=== PATIENT | female | born 1950 | race Caucasian/White ===

== ENCOUNTER 2016-10-02 17:37 | Emergency (ER) | payer MEDICARE, OTHER ==
[2016-10-02 18:16] VITALS: RESP 18
--- NOTE | 2016-10-02 18:27 | ED ---
Lower Extremity Injury HPI - General Chief Complaint: Extremity Injury, Lower Stated Complaint: RT HIP/PELVIS PAIN FROM FALL Time Seen by Provider: 10/02/16 18:13 Source: patient, RN notes reviewed Mode of arrival: ambulatory Limitations: no limitations - History of Present Illness Initial Comments: Patient is a 66-year-old female since emergency room for evaluation of right hip and groin pain. Patient states last Thursday she slipped and fell on the ice landing on her right hip. Patient states that she had severe pain but the pain did subside over the past few days. Patient states she went out of the house to get her hair done and due to constantly walking she began having increasing pain. Patient states she's been taking 400 mg of ibuprofen with little relief of symptoms. Patient does state she has a bruise on the outer right portion of her hip. Patient states she came here to make sure that she didn't break anything. Patient denies any numbness or tingling in her toes. Patient states she has more pain when walking. Patient denies being on any blood thinners. Patient denies head trauma during the incident. Patient denies any other injuries during incident. - Related Data Home Medications Medication Instructions Recorded Confirmed Unable To Assess [Unable to Assess] 10/02/16 10/02/16 Allergies Allergy/AdvReac Type Severity Reaction Status Date / Time No Known Allergies Allergy Verified 10/02/16 18:16 Review of Systems ROS Statement: Those systems with pertinent positive or pertinent negative responses have been documented in the HPI. ROS Other: All systems not noted in ROS Statement are negative. Past Medical History Past Medical History: Hypertension History of Any Multi-Drug Resistant Organisms: None Reported Past Surgical History: Breast Surgery, Cholecystectomy, Orthopedic Surgery Additional Past Surgical History / Comment(s): Right rotator cuff repair Past Psychological History: No Psychological Hx Reported Smoking Status: Never smoker Past Alcohol Use History: None Reported Past Drug Use History: None Reported General Exam - General Exam Comments Initial Comments: Sitting in exam room, no acute distress. Limitations: no limitations General appearance: alert, in no apparent distress Head exam: Present: atraumatic, normocephalic, normal inspection Eye exam: Present: normal appearance ENT exam: Present: normal exam Neck exam: Present: normal inspection Respiratory exam: Present: normal lung sounds bilaterally. Absent: respiratory distress Cardiovascular Exam: Present: regular rate, normal rhythm, normal heart sounds Right Hip exam: Present: full ROM, tenderness (Lateral hip and groin), ecchymosis (2 cm x 1 cm area of ecchymosis on the lateral portion of the upper leg.), pelvic stability. Absent: swelling, deformity, crepitus, dislocation, external rotation, internal rotation, shortening Upper Leg exam: Present: full ROM. Absent: tenderness Knee exam: Present: full ROM. Absent: tenderness Lower Leg exam: Present: full ROM. Absent: tenderness Ankle exam: Present: full ROM. Absent: tenderness Foot/Toe exam: Present: full ROM. Absent: tenderness Neurovascular tendon exam: Absent: pulse deficit (2+ dorsal pedal and posterior tibial pulses), abnormal cap refill (Capillary refill less than 2 seconds) Gait: observed and normal Back exam: Present: normal inspection Neurological exam: Present: alert, oriented X3, CN II-XII intact Psychiatric exam: Present: normal affect, normal mood Skin exam: Present: warm, dry, intact, normal color. Absent: rash Course Vital Signs 10/02/16 10/02/16 18:12 20:10 Temperature 97.9 F 98.0 F Pulse Rate 70 61 Respiratory 18 18 Rate Blood Pressure 164/102 188/90 O2 Sat by Pulse 98 98 Oximetry Medical Decision Making - Medical Decision Making Patient is a 66-year-old female presents emergency room for evaluation of right hip/groin pain. Right hip/pelvis x-ray: Nondisplaced fracture of the right inferior pubic ramus. Patient declined any pain medication while she was here. Patient declined being sent home with any pain medication. Patient states ibuprofen relieves her symptoms enough. Will write patient a prescription for a walker and have her follow-up with conservation specialist in 24-48 hours. Patient states she understands everything that was discussed with her. Return parameters discussed. Case discussed with Dr. Garcia. - Radiology Data Radiology results: report reviewed, image reviewed Disposition Clinical Impression: Inferior pubic ramus fracture Disposition: HOME SELF-CARE Condition: Good Instructions: Pelvic Fracture (ED) Additional Instructions: Ice on and off for 10-15 minutes for the next 24-48 hours. Use walker to ambulate. Please follow-up with conservation specialist in 24-48 hours for reevaluation. If new symptoms develop or symptoms worsen, please return to the ER. Referrals: Tatyana Garcia MD [Primary Care Provider] - 1-2 days Jeremiah Hedrick MD [Medical Doctor] - 1-2 days Time of Disposition: 19:50
--- NOTE | 2016-10-02 19:23 | XR ---
EXAMINATION TYPE: XR Hip RT and AP Pelvis DATE OF EXAM: 10/02/2016 6:30 PM COMPARISON: NONE HISTORY: 3 views TECHNIQUE: A single AP view of the pelvis is obtained. Two views of the right hip are obtained. FINDINGS: There is a linear lucency across the mid right inferior pubic ramus, consistent with subac monserrat nondisplaced fracture. There are no focal bone lesions associated with this finding or associated soft tissue findings radiographically. Remainder of the bones and joints and soft tissues are negative. Specifically, the right hip is negative. IMPRESSION: NONDISPLACED FRACTURE OF THE RIGHT INFERIOR PUBIC RAMUS.
[2016-10-02 20:11] VITALS: BP 188/90; PULSE 61; TEMP 98
== END 2016-10-02 20:10 | disposition home or self-care (01) ==
LOC: EC 17:37
DX: S32.591A Other specified fracture of right pubis, initial encounter for closed fracture (principal); W00.0XXA Fall on same level due to ice and snow, initial encounter
CPT/HCPCS: 73502; 99283

== ENCOUNTER 2021-10-05 17:48 | Inpatient (IN) | payer MEDICARE ==
[2021-10-05 18:35] LABS: Basophils # (A) 0.1 k/uL (0-0.2); Basophils % (A) 0 %; Eosinophils # (A) 0.3 k/uL (0-0.7); Eosinophils % (A) 2 %; HCT 46.8 % (34.0-46.0); HGB 15.8 gm/dL (11.4-16.0); Lymphocytes # (A) 1.8 k/uL (1.0-4.8); Lymphocytes % (A) 12 %; MCH 35.5 pg (25.0-35.0); MCHC 33.8 g/dL (31.0-37.0); MCV 105.1 fL (80.0-100.0); Macrocytosis Slight; Mean Platelet Volume 8.1; Monocytes # (A) 0.5 k/uL (0-1.0); Monocytes % (A) 3 %; Neutrophils # (A) 12.7 k/uL (1.3-7.7); Neutrophils % (A) 82 %; Platelet Count 264 k/uL (150-450); RBC 4.45 m/uL (3.80-5.40); RDW 12.5 % (11.5-15.5); WBC 15.5 k/uL (3.8-10.6)
[2021-10-05 18:42] LABS: INR 0.9 (<1.2); Partial Thromboplastin Time 23.8 sec (22.0-30.0)
[2021-10-05 18:44] LABS: Albumin 4.8 g/dL (3.5-5.0); Calcium 10.1 mg/dL (8.4-10.2); Magnesium 1.8 mg/dL (1.6-2.3); Total Bilirubin 2.2 mg/dL (0.2-1.3); Total Protein 8.5 g/dL (6.3-8.2)
--- NOTE | 2021-10-05 18:57 | XR ---
EXAMINATION TYPE: XR chest 1V portable DATE OF EXAM: 10/05/2021 COMPARISON: NONE HISTORY: Chest pain TECHNIQUE: Single view FINDINGS: There is no heart failure nor confluent pneumonic infiltrate. Costophrenic angles are clear . There are chest leads. Bony thorax is intact IMPRESSION: No active cardiopulmonary disease.
--- NOTE | 2021-10-05 20:02 | CT ---
EXAMINATION TYPE: CT angio chest DATE OF EXAM: 10/05/2021 COMPARISON: None HISTORY: JAZIEL, r/o PE CT DLP: 400.2 mGycm Automated exposure control for dose reduction was used. CONTRAST: Performed with IV Contrast, patient injected with 80 mL of Isovue 370. There are Three-D postprocessed images. There is a moderate sized pericardial effusion. There is interstitial infiltrates in both lower lobes . There is no evidence of a pulmonary mass. There is no mediastinal adenopathy. There are no hilar ma sses. There is normal contrast opacification of the pulmonary arteries. There are no filling defects. There is some spurring in the thoracic spine. Sternum is intact. IMPRESSION: No evidence of pulmonary embolism. Pericardial effusion. Interstitial lower lobe pulmonary infiltrates.
[2021-10-05] MEDS ORDERED: ACETAMINOPHEN TAB 325 MG TAB PO PRN (20:08)
[2021-10-05] MEDS ORDERED: cefTRIAXone IN SWFI 1,000 MG/10 ML SYRINGE IVP STA (20:08)
[2021-10-05] MEDS ORDERED: AZITHROMYCIN 500 MG in SODIUM CHLORIDE 0.9% 250 ML IVPB STA (20:08)
[2021-10-05] MEDS ORDERED: HEPARIN SODIUM 1,000 UN/ML (10ML VL) IV ONE (20:08)
[2021-10-05] MEDS ORDERED: HEPARIN SODIUM 1,000 UN/ML (10ML VL) IV PRN (20:08)
[2021-10-05] MEDS ORDERED: NALOXONE 0.4 MG/ML 1 ML VIAL IV PRN (20:08)
--- NOTE | 2021-10-05 20:15 | ED ---
General Adult HPI - General Chief complaint: Chest Pain Stated complaint: JAZIEL Time Seen by Provider: 10/05/21 18:04 Source: patient, RN notes reviewed, old records reviewed Mode of arrival: ambulatory Limitations: no limitations - History of Present Illness Initial comments: 71-year-old female presenting for evaluation of 2 days of chest discomfort as w ell as dyspnea. Patient has no previous history of CAD, no history of DVT or PE. No history of asthma or COPD. She denies cough. Denies fever. She states that the symptoms have been present for 2 days and they are worse with exertion. She did have a similar episode about one week ago which resolved. - Related Data Home Medications Medication Instructions Recorded Confirmed Allopurinol [Zyloprim] 100 mg PO DAILY 10/05/21 10/05/21 Aspirin EC [Ecotrin Low Dose] 81 mg PO DAILY 10/05/21 10/05/21 Lisinopril-Hctz 20-12.5 mg 1 tab PO DAILY 10/05/21 10/05/21 [Zestoretic 20-12.5] Multivitamins, Thera [Multivitamin 1 tab PO DAILY 10/05/21 10/05/21 (formulary)] amLODIPine [Norvasc] 10 mg PO DAILY 10/05/21 10/05/21 Allergies Allergy/AdvReac Type Severity Reaction Status Date / Time morphine AdvReac Vomiting Verified 10/05/21 20:04 Review of Systems ROS Statement: Those systems with pertinent positive or pertinent negative responses have been documented in the HPI. ROS Other: All systems not noted in ROS Statement are negative. Past Medical History Past Medical History: Hypertension History of Any Multi-Drug Resistant Organisms: None Reported Past Surgical History: Breast Surgery, Cholecystectomy, Orthopedic Surgery Additional Past Surgical History / Comment(s): Right rotator cuff repair Past Psychological History: No Psychological Hx Reported Smoking Status: Never smoker Past Alcohol Use History: None Reported Past Drug Use History: None Reported General Exam Limitations: no limitations General appearance: alert, in no apparent distress Head exam: Present: atraumatic, normocephalic Eye exam: Present: normal appearance, PERRL ENT exam: Present: normal exam Neck exam: Present: normal inspection. Absent: tenderness, meningismus Respiratory exam: Present: rales (Left lung base). Absent: respiratory distress Cardiovascular Exam: Present: tachycardia, irregular rhythm GI/Abdominal exam: Present: soft. Absent: distended, tenderness, guarding Extremities exam: Present: normal inspection, normal capillary refill. Absent: pedal edema Neurological exam: Present: alert, oriented X3, CN II-XII intact. Absent: motor sensory deficit Psychiatric exam: Present: normal affect, normal mood Skin exam: Present: warm, dry, intact. Absent: cyanosis, diaphoretic Course Vital Signs 10/05/21 10/05/21 17:59 18:52 Temperature 99 F Pulse Rate 118 H 102 H Respiratory 18 18 Rate Blood Pressure 136/86 141/80 O2 Sat by Pulse 97 97 Oximetry EKG Findings - EKG Comments: EKG Findings:: EKG: Atrial fibrillation with RVR rate of 114, rightward axis, no ST segment elevation, widened QRS, QTC is 468. No old for comparison. Medical Decision Making - Medical Decision Making 71-year-old female who presented with chief complaint of chest discomfort and dyspnea for the last 2 days. Patient found to be in atrial fibrillation with RVR with no prior history. There is no old EKG for comparison. Her workup shows chest x-ray which is relatively clear. Mild leukocytosis of 15.4. Stable hemoglobin. She has a negative troponin. Negative BNP. I did have coronavirus. I did perform CT angiography which was negative for pulmonary embolism but this show infiltrate as well as pericardial effusion. Echo will be obtained. The patient is started on Cardizem for rate control. She started on heparin for new onset atrial fibrillation. She will be admitted to monitored bed, case discussed with Dr. Silverman. Cardiology is placed on consult. - Lab Data Result diagrams: 10/05/21 18:23 10/05/21 18:23 Lab Results 10/05/21 10/05/21 10/05/21 Range/Units 18:23 18:23 18:23 WBC 15.5 H (3.8-10.6) k/uL RBC 4.45 (3.80-5.40) m/uL Hgb 15.8 (11.4-16.0) gm/dL Hct 46.8 H (34.0-46.0) % MCV 105.1 H (80.0-100.0) fL MCH 35.5 H (25.0-35.0) pg MCHC 33.8 (31.0-37.0) g/dL RDW 12.5 (11.5-15.5) % Plt Count 264 (150-450) k/uL MPV 8.1 Neutrophils % 82 % Lymphocytes % 12 % Monocytes % 3 % Eosinophils % 2 % Basophils % 0 % Neutrophils # 12.7 H (1.3-7.7) k/uL Lymphocytes # 1.8 (1.0-4.8) k/uL Monocytes # 0.5 (0-1.0) k/uL Eosinophils # 0.3 (0-0.7) k/uL Basophils # 0.1 (0-0.2) k/uL Macrocytosis Slight PT 10.0 (9.0-12.0) sec INR 0.9 (<1.2) APTT 23.8 (22.0-30.0) sec Sodium 132 L (137-145) mmol/L Potassium 5.0 (3.5-5.1) mmol/L Chloride 98 (98-107) mmol/L Carbon Dioxide 23 (22-30) mmol/L Anion Gap 11 mmol/L BUN 15 (7-17) mg/dL Creatinine 0.99 (0.52-1.04) mg/dL Est GFR (CKD-EPI)AfAm 67 (>60 ml/min/1.73 sqM) Est GFR (CKD-EPI)NonAf 58 (>60 ml/min/1.73 sqM) Glucose 149 H (74-99) mg/dL Calcium 10.1 (8.4-10.2) mg/dL Magnesium 1.8 (1.6-2.3) mg/dL Total Bilirubin 2.2 H (0.2-1.3) mg/dL AST 45 H (14-36) U/L ALT 30 (4-34) U/L Alkaline Phosphatase 68 (38-126) U/L Troponin I (0.000-0.034) ng/mL NT-Pro-B Natriuret Pep pg/mL Total Protein 8.5 H (6.3-8.2) g/dL Albumin 4.8 (3.5-5.0) g/dL Coronavirus (PCR) (Not Detectd) 10/05/21 10/05/21 10/05/21 Range/Units 18:23 18:23 18:52 WBC (3.8-10.6) k/uL RBC (3.80-5.40) m/uL Hgb (11.4-16.0) gm/dL Hct (34.0-46.0) % MCV (80.0-100.0) fL MCH (25.0-35.0) pg MCHC (31.0-37.0) g/dL RDW (11.5-15.5) % Plt Count (150-450) k/uL MPV Neutrophils % % Lymphocytes % % Monocytes % % Eosinophils % % Basophils % % Neutrophils # (1.3-7.7) k/uL Lymphocytes # (1.0-4.8) k/uL Monocytes # (0-1.0) k/uL Eosinophils # (0-0.7) k/uL Basophils # (0-0.2) k/uL Macrocytosis PT (9.0-12.0) sec INR (<1.2) APTT (22.0-30.0) sec Sodium (137-145) mmol/L Potassium (3.5-5.1) mmol/L Chloride (98-107) mmol/L Carbon Dioxide (22-30) mmol/L Anion Gap mmol/L BUN (7-17) mg/dL Creatinine (0.52-1.04) mg/dL Est GFR (CKD-EPI)AfAm (>60 ml/min/1.73 sqM) Est GFR (CKD-EPI)NonAf (>60 ml/min/1.73 sqM) Glucose (74-99) mg/dL Calcium (8.4-10.2) mg/dL Magnesium (1.6-2.3) mg/dL Total Bilirubin (0.2-1.3) mg/dL AST (14-36) U/L ALT (4-34) U/L Alkaline Phosphatase (38-126) U/L Troponin I 0.019 (0.000-0.034) ng/mL NT-Pro-B Natriuret Pep 337 pg/mL Total Protein (6.3-8.2) g/dL Albumin (3.5-5.0) g/dL Coronavirus (PCR) Not Detected (Not Detectd) Critical Care Time Critical Care Time: Yes Total Critical Care Time: 35 Disposition Clinical Impression: Chest pain, Atrial fibrillation with RVR Disposition: ADMITTED IP TO THIS HOSP Condition: Stable Is patient prescribed a controlled substance at d/c from ED?: No Referrals: Tatyana Garcia MD [Primary Care Provider] - 1-2 days Decision to Admit Reason: Admit from EC Decision Date: 10/05/21 Decision Time: 20:15
[2021-10-05] MEDS: DILTIAZEM 125 MG in SODIUM CHLORIDE 0.9% 100 ML IV SCH (20:40)
[2021-10-05] MEDS: HEPARIN SOD,PORK IN 0.45% NACL 25,000 UNIT in 0.45% NACL 1 250ML.BAG IV SCH (20:54)
[2021-10-06] MEDS ORDERED: LORazepam 2 MG/ML INJ IV PRN ×3 (01:49)
[2021-10-06 03:55] LABS: Basophils # (A) 0.1 k/uL (0-0.2); Basophils % (A) 1 %; Eosinophils # (A) 0.1 k/uL (0-0.7); Eosinophils % (A) 1 %; HCT 42.4 % (34.0-46.0); HGB 14.2 gm/dL (11.4-16.0); Lymphocytes # (A) 2.2 k/uL (1.0-4.8); Lymphocytes % (A) 20 %; MCH 35.6 pg (25.0-35.0); MCHC 33.5 g/dL (31.0-37.0); MCV 106.1 fL (80.0-100.0); Macrocytosis Slight; Monocytes # (A) 0.3 k/uL (0-1.0); Monocytes % (A) 3 %; Neutrophils # (A) 8.6 k/uL (1.3-7.7); Neutrophils % (A) 76 %; Platelet Count 225 k/uL (150-450); RDW 12.5 % (11.5-15.5); WBC 11.3 k/uL (3.8-10.6)
[2021-10-06 04:05] LABS: INR 0.9 (<1.2); Partial Thromboplastin Time 29.4 sec (22.0-30.0); Prothrombin Time 10.3 sec (9.0-12.0)
--- NOTE | 2021-10-06 10:19 | P.HPIM ---
History of Present Illness H&P Date: 10/06/21 Chief Complaint: Shortness of breath A. fib RVR This is a 71-year-old female patient of Dr. Garcia who presented with concerns of shortness breath and rapid heartbeat. Patient states that initial episode happened 2 days ago where she felt that her heart was racing and she had trouble breathing. Patient denies any symptoms. Patient reports that the symptoms re- presented yesterday which prompted her to come to ER. Patient does have a past medical history of essential hypertension and EtOH. Patient reports she drinks 6 beers a day. Chest x-ray was completed showing no active cardiopulmonary disease. Chest CTA was completed showing no evidence of pulmonary embolism. Pericardial effusion. Interstitial lower lobe multiple pulmonary infiltrates. Patient also presented with an elevated white count of 15.5. EKG completed showing atrial fibrillation with rapid ventricular response. Patient denies history of atrial fibrillation. Troponins negative 3. Patient was started on Cardizem drip and heparin drip. Patient also started on IV antibiotics. At this time cardiology and pulmonary services have been consulted. COVID-19 negative. 2-D echo has been ordered. Alcohol withdrawal protocol initiated. Repeat labs ordered. This time patient is resting comfortably in bed. Patient denies chest pain or shortness breath. Patient denies nausea vomiting or diarrhea. Patient denies any urinary burning or frequency Review of Systems Please refer to HPI otherwise unremarkable Past Medical History Past Medical History: Hyperlipidemia, Hypertension History of Any Multi-Drug Resistant Organisms: None Reported Past Surgical History: Breast Surgery, Cholecystectomy, Orthopedic Surgery Additional Past Surgical History / Comment(s): Right rotator cuff repair Past Anesthesia/Blood Transfusion Reactions: No Reported Reaction Past Psychological History: No Psychological Hx Reported Smoking Status: Never smoker Past Alcohol Use History: Daily Additional Past Alcohol Use History / Comment(s): 6 beers a day, denies any detox s/sx Past Drug Use History: None Reported - Past Family History Father Family Medical History: Myocardial Infarction (ND) Mother Family Medical History: Congestive Heart Failure (CHF) Medications and Allergies Home Medications Medication Instructions Recorded Confirmed Type Allopurinol [Zyloprim] 100 mg PO DAILY 10/05/21 10/05/21 History Aspirin EC [Ecotrin Low Dose] 81 mg PO DAILY 10/05/21 10/05/21 History Lisinopril-Hctz 20-12.5 mg 1 tab PO DAILY 10/05/21 10/05/21 History [Zestoretic 20-12.5] Multivitamins, Thera [Multivitamin 1 tab PO DAILY 10/05/21 10/05/21 History (formulary)] amLODIPine [Norvasc] 10 mg PO DAILY 10/05/21 10/05/21 History Allergies Allergy/AdvReac Type Severity Reaction Status Date / Time morphine AdvReac Vomiting Verified 10/05/21 20:04 Physical Exam Vitals: Vital Signs Temp Pulse Pulse Resp BP BP Pulse Ox 10/06/21 03:15 98.2 F 82 18 141/82 95 10/06/21 00:24 20 10/05/21 23:30 98.6 F 92 20 135/77 94 L 10/05/21 22:42 80 18 115/80 98 10/05/21 21:35 95 10/05/21 20:56 104 H 18 139/82 97 10/05/21 18:52 102 H 18 141/80 97 10/05/21 17:59 99 F 118 H 18 136/86 97 Intake and Output 10/05/21 10/06/21 10/06/21 22:59 06:59 14:59 Intake Total 75.525 Balance 75.525 Intake: Intake, IV Titration 75.525 Amount Heparin Sod,Pork in 0.45% 75.525 NaCl 25,000 unit In 0.45 % NaCl 1 250ml.bag @ 12 UNITS/KG/HR 10.07 mls/hr IV .Q24H ON LICENSE OF [facility] Rx#: [id number] Other: # Voids 1 1 Weight 83.915 kg 83.915 kg Head normocephalic Neck supple Lungs clear to auscultation bilaterally no wheezing or crackles Heart irregular heart rate. Atrial fibrillation Abdomen is soft nontender nondistended positive bowel sounds no hepatosplenomegaly Extremities no edema Neuro alert and orientated to 3 Results CBC & Chem 7: 10/06/21 03:05 10/05/21 18:23 Labs: Abnormal Lab Results - Last 24 Hours (Table) 10/05/21 10/05/21 10/06/21 Range/Units 18:23 18:23 03:05 WBC 15.5 H 11.3 H (3.8-10.6) k/uL Hct 46.8 H (34.0-46.0) % MCV 105.1 H 106.1 H (80.0-100.0) fL MCH 35.5 H 35.6 H (25.0-35.0) pg Neutrophils # 12.7 H 8.6 H (1.3-7.7) k/uL APTT (22.0-30.0) sec Sodium 132 L (137-145) mmol/L Glucose 149 H (74-99) mg/dL Total Bilirubin 2.2 H (0.2-1.3) mg/dL AST 45 H (14-36) U/L Total Protein 8.5 H (6.3-8.2) g/dL 10/06/21 Range/Units 09:38 WBC (3.8-10.6) k/uL Hct (34.0-46.0) % MCV (80.0-100.0) fL MCH (25.0-35.0) pg Neutrophils # (1.3-7.7) k/uL APTT 39.2 H (22.0-30.0) sec Sodium (137-145) mmol/L Glucose (74-99) mg/dL Total Bilirubin (0.2-1.3) mg/dL AST (14-36) U/L Total Protein (6.3-8.2) g/dL Thrombosis Risk Factor Assmnt - Choose All That Apply Any of the Below Risk Factors Present?: Yes Each Factor Represents 1 point: History of prior major surgery (<1month), Obesity (BMI >25) Other Risk Factors: Yes Each Risk Factor Represents 2 Points: Age 61-74 years Thrombosis Risk Factor Assessment Total Risk Factor Score: 4 Thrombosis Risk Factor Assessment Level: Moderate Risk Assessment and Plan Assessment: 1. Dyspnea secondary to pneumonia and new onset atrial fibrillation with RVR 2. Atrial fibrillation with rapid ventricular response. Patient started on Cardizem and heparin drips. Cardiology services consulted 2-D echo ordered 3. Pneumonia. Patient started on azithromycin and Rocephin. Pulmonary service is consulted 4. EtOH. Alcohol withdrawal protocol initiated patient reports she drinks approximately 6 beers a day 5. Essential hypertension DVT prophylaxis heparin drip. GI prophylaxis Protonix Cardiology and pulmonary service is consulted 2-D echo ordered Hemoglobin A1c ordered Patient maintained on IV antibiotics Patient maintained on IV Cardizem and heparin drips Time with Patient: Greater than 30 (Greater than 60% of the total time spent in counseling and coordination of care)
[2021-10-06 10:24] LABS: Albumin 3.9 g/dL (3.5-5.0); Calcium 9.6 mg/dL (8.4-10.2); Potassium 3.8 mmol/L (3.5-5.1); Total Bilirubin 0.9 mg/dL (0.2-1.3); Total Protein 6.7 g/dL (6.3-8.2)
--- NOTE | 2021-10-06 12:26 | P.CRDCN ---
History of Present Illness Consult date: 10/06/21 History of present illness: History of Presenting Illness: Patient is a very pleasant 71-year-old female with a past medical history of hypertension, hyperlipidemia, and EtOH use/abuse drinking approximately 6 beers daily times many years. She presented to the emergency department with a chief complaint of shortness of breath, chest pressure and palpitations. In the emergency department patient underwent a full evaluation. Chest x-ray completed negative for acute cardiopulmonary process. CTA negative for pulmonary emboli. EKG revealing atrial fibrillation with RVR 114 bpm with T-wave inversion in inferior leads 2, 3, and aVF. Patient was admitted under internal medicine team and we have been consulted for management of A. fib RVR. Patient seen and fully evaluated at the bedside. She is currently on heparin infusion and Cardizem i nfusion at 5 mg per hour. Patient remains in atrial fibrillation with slightly tachycardic rate ranging from 90s to 110s. She currently reports palpitations, shortness of breath, and chest pressure have resolved. She denies having any other complaints including headache, lightheadedness, dizziness, nausea, vomiting, or experiencing any numbness/tingling/weakness in her extremities. Review of systems: Pertinent positives and negatives as discussed in HPI, a complete review of systems was performed and all other systems are negative. Physical exam: Vital signs reviewed and stable. General: Nontoxic, no distress and appears stated age. Derm: Skin warm and dry, normal coloration for ethnicity. Head: Atraumatic, normocephalic and symmetric. Eyes: EOMs intact, no lid lag, and anicteric sclera Mouth: no lip lesions, mucus membranes moist Cardiovascular: regular rate and rhythm with normal S1S2, no murmur, positive posterior tibial pulses bilaterally, and cap refill < 2 seconds. Lungs: Respirations even, regular, and unlabored on room air. Lungs CTA bilaterally, no rhonchi, no rales, no wheezing, and no accessory muscle usage. Abdominal: soft, nontender to palpation, no guarding, no appreciable organomegaly Ext: ROM intact. No gross muscle atrophy, no edema, no contractures Neuro: Speech clear, face symmetrical and CN II-XII grossly intact with no noted focal neuro deficits Psych: Alert and oriented to person, place, time, and situation. Appropriate and pleasant affect. Assessment and Plan of Care: Atrial fibrillation with RVR, new onset Hypertension Hyperlipidemia EtOH use/abuse -Telemetry monitoring -Continue heparin infusion, will transition to oral anticoagulation tomorrow morning. -Continue Cardizem infusion for rate control -Resume amlodipine, lisinopril, and add metoprolol 25 mg daily -Patient counseled on alcohol abuse and risks for atrial fibrillation, continue to encourage and educate patient on benefits of alcohol cessation and risks of continued use. -Echocardiogram to be completed. -Further recommendations to be provided based on patient's clinical course. Thank you for allowing us to participate in the care of this pleasant patient. Do not hesitate to contact us with questions. Nurse practitioner note has been reviewed by physician. Signing provider agrees with the documented findings, assessment, and plan of care. PMH HTN, no previous heart problems etoh abuse 6 beers daily CP, SOB, Palpitations new onset atrial fib with RVR lungs CTA Heart irregularly irregular on cardizem and heparin Past Medical History Past Medical History: Hyperlipidemia, Hypertension History of Any Multi-Drug Resistant Organisms: None Reported Past Surgical History: Breast Surgery, Cholecystectomy, Orthopedic Surgery Additional Past Surgical History / Comment(s): Right rotator cuff repair Past Anesthesia/Blood Transfusion Reactions: No Reported Reaction Past Psychological History: No Psychological Hx Reported Smoking Status: Never smoker Past Alcohol Use History: Daily Additional Past Alcohol Use History / Comment(s): 6 beers a day, denies any detox s/sx Past Drug Use History: None Reported - Past Family History Father Family Medical History: Myocardial Infarction ([place]) Mother Family Medical History: Congestive Heart Failure (CHF) Medications and Allergies Home Medications Medication Instructions Recorded Confirmed Type Allopurinol [Zyloprim] 100 mg PO DAILY 10/05/21 10/05/21 History Aspirin EC [Ecotrin Low Dose] 81 mg PO DAILY 10/05/21 10/05/21 History Lisinopril-Hctz 20-12.5 mg 1 tab PO DAILY 10/05/21 10/05/21 History [Zestoretic 20-12.5] Multivitamins, Thera [Multivitamin 1 tab PO DAILY 10/05/21 10/05/21 History (formulary)] amLODIPine [Norvasc] 10 mg PO DAILY 10/05/21 10/05/21 History Allergies Allergy/AdvReac Type Severity Reaction Status Date / Time morphine AdvReac Vomiting Verified 10/05/21 20:04 Physical Exam Vitals: Vital Signs Temp Pulse Pulse Resp BP BP Pulse Ox 10/06/21 03:15 98.2 F 82 18 141/82 95 10/06/21 00:24 20 10/05/21 23:30 98.6 F 92 20 135/77 94 L 10/05/21 22:42 80 18 115/80 98 10/05/21 21:35 95 10/05/21 20:56 104 H 18 139/82 97 10/05/21 18:52 102 H 18 141/80 97 10/05/21 17:59 99 F 118 H 18 136/86 97 Intake and Output 10/05/21 10/06/21 10/06/21 22:59 06:59 14:59 Intake Total 75.525 Balance 75.525 Intake: Intake, IV Titration 75.525 Amount Heparin Sod,Pork in 0.45% 75.525 NaCl 25,000 unit In 0.45 % NaCl 1 250ml.bag @ 12 UNITS/KG/HR 10.07 mls/hr IV .Q24H [facility] Rx#: [id number] Other: # Voids 1 Weight 83.915 kg 83.915 kg Results 10/06/21 03:05 10/06/21 09:38 Cardiac Enzymes 10/05/21 10/05/21 10/05/21 Range/Units 18:23 18:23 20:33 AST 45 H (14-36) U/L Troponin I 0.019 <0.012 (0.000-0.034) ng/mL 10/06/21 Range/Units 00:03 AST (14-36) U/L Troponin I 0.012 (0.000-0.034) ng/mL Coagulation 10/05/21 10/06/21 Range/Units 18:23 03:05 PT 10.0 10.3 (9.0-12.0) sec APTT 23.8 29.4 (22.0-30.0) sec CBC 10/05/21 10/06/21 Range/Units 18:23 03:05 WBC 15.5 H 11.3 H (3.8-10.6) k/uL RBC 4.45 4.00 (3.80-5.40) m/uL Hgb 15.8 14.2 (11.4-16.0) gm/dL Hct 46.8 H 42.4 (34.0-46.0) % Plt Count 264 225 (150-450) k/uL Comprehensive Metabolic Panel 10/05/21 Range/Units 18:23 Sodium 132 L (137-145) mmol/L Potassium 5.0 (3.5-5.1) mmol/L Chloride 98 (98-107) mmol/L Carbon Dioxide 23 (22-30) mmol/L BUN 15 (7-17) mg/dL Creatinine 0.99 (0.52-1.04) mg/dL Glucose 149 H (74-99) mg/dL Calcium 10.1 (8.4-10.2) mg/dL AST 45 H (14-36) U/L ALT 30 (4-34) U/L Alkaline Phosphatase 68 (38-126) U/L Total Protein 8.5 H (6.3-8.2) g/dL Albumin 4.8 (3.5-5.0) g/dL Current Medications Generic Name Dose Route Start Last Admin Trade Name Freq PRN Reason Stop Dose Admin Acetaminophen 650 mg 10/05/21 20:08 Acetaminophen Tab 325 Mg Tab PO Q6HR PRN Mild Pain or Fever > 100.5 Heparin Sodium (Porcine) 0 unit 10/05/21 20:08 10/06/21 04:31 Heparin Sodium 1,000 Un/Ml (10ml Vl) IV 4,195 unit PER PROTOCOL PRN Administration Low PTT Protocol Diltiazem HCl 125 mg/ Sodium 125 mls @ 5 mls/hr 10/05/21 20:15 10/05/21 20:40 Chloride IV 5 mg/hr .Q24H [facility] 5 mls/hr Administration 5 MG/HR Heparin Sodium/Sodium Chloride 250 mls @ 10.07 mls/hr 10/05/21 20:15 10/06/21 04:24 25,000 unit/ Sodium Chloride IV 15 units/kg/hr .Q24H [facility] 12.587 mls/hr Titration Protocol 12 UNITS/KG/HR Lorazepam 1 mg 10/06/21 01:49 Lorazepam 2 Mg/Ml Inj IV Q2HR PRN CIWA 8 or 9 Lorazepam 1 mg 10/06/21 01:49 Lorazepam 2 Mg/Ml Inj IV Q1HR PRN CIWA 10 to 15 Lorazepam 2 mg 10/06/21 01:49 Lorazepam 2 Mg/Ml Inj IV 10/08/21 01:49 Q10M PRN CIWA 16 or higher Naloxone HCl 0.2 mg 10/05/21 20:08 Naloxone 0.4 Mg/Ml 1 Ml Vial IV Q2M PRN Opioid Reversal Thiamine HCl 100 mg 10/06/21 17:30 Thiamine 100 Mg Tab PO BID-W/MEALS [facility] Intake and Output 10/05/21 10/06/21 10/06/21 22:59 06:59 14:59 Intake Total 75.525 Balance 75.525 Intake: Intake, IV Titration 75.525 Amount Heparin Sod,Pork in 0.45% 75.525 NaCl 25,000 unit In 0.45 % NaCl 1 250ml.bag @ 12 UNITS/KG/HR 10.07 mls/hr IV .Q24H [facility] Rx#: [id number] Other: # Voids 1 Weight 83.915 kg 83.915 kg 10/06/21 03:05 10/05/21 18:23
[2021-10-06] MEDS ORDERED: METOPROLOL SUCCINATE (ER) 25 MG TAB.ER.24H PO SCH (12:30)
[2021-10-06] MEDS: THIAMINE 100 MG TAB PO SCH (12:46)
--- NOTE | 2021-10-06 14:07 | P.CNPUL ---
History of Present Illness Consult date: 10/06/21 Requesting physician: Poonam Somers Reason for consult: dyspnea, chest pain Chief complaint: Chest pain, shortness of breath History of present illness: This a very pleasant 71-year-old female patient who follows with Dr. Garcia as her primary care provider. She has a history of hypertension, gout, a 20 year 2 pack per day smoking history. He presented to the emergency room last evening with a 2 day history of chest discomfort as well as some shortness of breath. She had a similar episode to 1 week ago. No previous history of coronary artery disease no history of DVT or PE. No history of COPD or asthma. No inhalers or oxygen in the outpatient setting. Chest x-ray revealed no acute cardiopulmonary process. CT angiogram revealed no evidence of pulmonary embolism. There was some noted pericardial effusion. Left lower lobe atelectasis. EKG revealed atrial fibrillation with a rapid ventricular response. Incomplete right bundle branch block. Troponin negative 2. ProBNP 337. White count 11.3. Hemoglobin 14.2. Sodium 134. Potassium 3.8. BUN 0.99. Glucose 136. AST 20. ALT 21. Coronavirus by PCR not detected. She is seen today in consultation on the selective care unit. She is currently sitting up in bed. Awake and alert in no acute distress. She is maintaining good O2 saturations in the 90s on room air. No shortness of breath, cough or congestion. No fever, chills or night sweats. Lung sounds are clear. His been initiated on a Cardizem drip currently at 5 mg per hour. Initiated on a heparin drip. Cardiology is consulted as well. Echocardiogram is pending. She's been initiated on ceftriaxone and azithromycin. Review of Systems REVIEW OF SYSTEMS: CONSTITUTIONAL: Denies any recent significant weight loss or weight gain. EYES: Denies change in vision. EARS, NOSE, MOUTH, THROAT: Denies headaches, denies sore throat. CARDIOVASCULAR: Positive for chest pain, palpitations no syncopal episodes. RESPIRATORY: Positive for shortness of breath, no cough, congestion or hemoptysis. GASTROINTESTINAL: Denies change in appetite, denies abdominal pain GENITOURINARY: Denies hematuria, denies infections. MUSKULOSKELETAL: Denies pain, denies swelling. INTEGUMENTARY: Denies rash, denies eczema. NEUROLOGICAL: Denies recent memory loss, no recent seizure activity. PSYCHIATRIC: Denies anxiety, denies depression. HEMATOLOGIC/LYMPHATIC: Denies anemia, denies enlarged lymph nodes. s Past Medical History Past Medical History: Hyperlipidemia, Hypertension History of Any Multi-Drug Resistant Organisms: None Reported Past Surgical History: Breast Surgery, Cholecystectomy, Orthopedic Surgery Additional Past Surgical History / Comment(s): Right rotator cuff repair Past Anesthesia/Blood Transfusion Reactions: No Reported Reaction Past Psychological History: No Psychological Hx Reported Smoking Status: Never smoker Past Alcohol Use History: Daily Additional Past Alcohol Use History / Comment(s): 6 beers a day, denies any detox s/sx Past Drug Use History: None Reported - Past Family History Father Family Medical History: Myocardial Infarction ([place]) Mother Family Medical History: Congestive Heart Failure (CHF) Medications and Allergies Home Medications Medication Instructions Recorded Confirmed Type Allopurinol [Zyloprim] 100 mg PO DAILY 10/05/21 10/05/21 History Aspirin EC [Ecotrin Low Dose] 81 mg PO DAILY 10/05/21 10/05/21 History Lisinopril-Hctz 20-12.5 mg 1 tab PO DAILY 10/05/21 10/05/21 History [Zestoretic 20-12.5] Multivitamins, Thera [Multivitamin 1 tab PO DAILY 10/05/21 10/05/21 History (formulary)] amLODIPine [Norvasc] 10 mg PO DAILY 10/05/21 10/05/21 History Allergies Allergy/AdvReac Type Severity Reaction Status Date / Time morphine AdvReac Vomiting Verified 10/05/21 20:04 Physical Exam Vitals: Vital Signs Temp Pulse Pulse Resp BP BP BP 10/06/21 12:45 97.6 F 86 18 126/61 10/06/21 07:45 97.6 F 70 18 124/70 10/06/21 03:15 98.2 F 82 18 141/82 10/06/21 00:24 20 10/05/21 23:30 98.6 F 92 20 135/77 10/05/21 22:42 80 18 115/80 10/05/21 21:35 95 10/05/21 20:56 104 H 18 139/82 10/05/21 18:52 102 H 18 141/80 10/05/21 17:59 99 F 118 H 18 136/86 Pulse Ox 10/06/21 12:45 92 L 10/06/21 07:45 96 10/06/21 03:15 95 10/06/21 00:24 10/05/21 23:30 94 L 10/05/21 22:42 98 10/05/21 21:35 10/05/21 20:56 97 10/05/21 18:52 97 10/05/21 17:59 97 Intake and Output 10/05/21 10/06/21 10/06/21 22:59 06:59 14:59 Intake Total 75.525 270 Balance 75.525 270 Intake: IV 30 Invasive Line 2 20 Invasive Line 3 10 Intake, IV Titration 75.525 Amount Heparin Sod,Pork in 0.45% 75.525 NaCl 25,000 unit In 0.45 % NaCl 1 250ml.bag @ 12 UNITS/KG/HR 10.07 mls/hr IV .Q24H [facility] Rx#: [id number] Oral 240 Other: # Voids 1 1 Weight 83.915 kg 83.915 kg GENERAL EXAM: Alert, very pleasant 71-year-old female patient, on room air, comfortable in no apparent distress. HEAD: Normocephalic. EYES: Normal reaction of pupils, equal size. NOSE: Clear with pink turbinates. THROAT: No erythema or exudates. NECK: No masses, no JVD. CHEST: No chest wall deformity. LUNGS: Equal air entry with no crackles, wheeze, rhonchi or dullness. CVS: S1 and S2 normal with no audible murmur, irregular rhythm. ABDOMEN: No hepatosplenomegaly, normal bowel sounds, no guarding or rigidity. SPINE: No scoliosis or deformity SKIN: No rashes CENTRAL NERVOUS SYSTEM: No focal deficits, tone is normal in all 4 extremities. EXTREMITIES: There is no peripheral edema. No clubbing, no cyanosis. Peripheral pulses are intact. Results - Laboratory Findings CBC and BMP: 10/06/21 03:05 10/06/21 09:38 PT/INR, D-dimer PT 10.3 sec (9.0-12.0) 10/06/21 03:05 INR 0.9 (<1.2) 10/06/21 03:05 Abnormal lab findings: Abnormal Labs 10/05/21 10/05/21 10/06/21 18:23 18:23 03:05 WBC 15.5 H 11.3 H Hct 46.8 H MCV 105.1 H 106.1 H MCH 35.5 H 35.6 H Neutrophils # 12.7 H 8.6 H APTT Sodium 132 L Glucose 149 H Total Bilirubin 2.2 H AST 45 H Total Protein 8.5 H 10/06/21 10/06/21 09:38 09:38 WBC Hct MCV MCH Neutrophils # APTT 39.2 H Sodium 134 L Glucose 136 H Total Bilirubin AST Total Protein - Diagnostic Findings Chest x-ray: image reviewed CT scan - chest: image reviewed Assessment and Plan Assessment: 1 Chest discomfort without evidence of acute coronary syndrome, pericardial effusion noted on CAT scan 2 Atrial fibrillation with a rapid ventricular response, currently on Cardizem drip and heparin drip 3 Dyspnea on exertion secondary to above, no evidence of pneumonia 4 History of chronic tobacco dependence 5 History of hypertension 6 History of gout 7 Daily alcohol use of 6 beers a day Plan: The patient was seen and evaluated Chest x-ray, CAT scan and labs reviewed No evidence of pneumonia at this time Procalcitonin and pending Continue antibiotics for now Echocardiogram pending We will continue to follow and make further recommendations based on her clinical status I, the cosigning physician, performed a history & physical examination of the patient. Lungs sounds are clear. Maintaining good O2 saturations in the 90s on room air. I discussed the assessment and plan of care with my nurse practitioner, Charisse Clark. I attest to the above consultation as dictated by her. Time with Patient: Greater than 30
[2021-10-06] MEDS: AZITHROMYCIN 500 MG in SODIUM CHLORIDE 0.9% 250 ML IVPB SCH (17:13)
[2021-10-06] MEDS: HEPARIN SOD,PORK IN 0.45% NACL 25,000 UNIT in 0.45% NACL 1 250ML.BAG IV SCH (17:13)
[2021-10-06] MEDS: DILTIAZEM 125 MG in SODIUM CHLORIDE 0.9% 100 ML IV SCH (17:14)
[2021-10-07] MEDS: THIAMINE 100 MG TAB PO SCH ×2 (06:18→16:36)
[2021-10-07] MEDS ORDERED: PANTOPRAZOLE 40 MG TABLET PO SCH (07:30)
[2021-10-07 08:07] LABS: Basophils # (A) 0.1 k/uL (0-0.2); Basophils % (A) 1 %; Eosinophils # (A) 0.2 k/uL (0-0.7); Eosinophils % (A) 2 %; HGB 15.3 gm/dL (11.4-16.0); Lymphocytes # (A) 2.4 k/uL (1.0-4.8); Lymphocytes % (A) 26 %; MCH 35.2 pg (25.0-35.0); MCHC 32.5 g/dL (31.0-37.0); MCV 108.2 fL (80.0-100.0); Macrocytosis Moderate; Mean Platelet Volume 7.7; Monocytes # (A) 0.4 k/uL (0-1.0); Monocytes % (A) 5 %; Neutrophils # (A) 6.1 k/uL (1.3-7.7); Neutrophils % (A) 66 %; Platelet Count 244 k/uL (150-450); RBC 4.34 m/uL (3.80-5.40); RDW 12.4 % (11.5-15.5); WBC 9.2 k/uL (3.8-10.6)
[2021-10-07 08:29] LABS: Calcium 9.7 mg/dL (8.4-10.2)
[2021-10-07 08:39] LABS: Potassium 3.8 mmol/L (3.5-5.1)
[2021-10-07] MEDS ORDERED: METOPROLOL SUCCINATE (ER) 50 MG TAB.ER.24H PO SCH (09:00)
[2021-10-07] MEDS ORDERED: amLODIPine 10 MG TAB PO SCH (09:00)
[2021-10-07] MEDS ORDERED: APIXABAN 5 MG TAB PO SCH (09:00)
[2021-10-07] MEDS ORDERED: allopurinoL 100 MG TAB PO SCH (09:00)
[2021-10-07] MEDS ORDERED: ASPIRIN 81 MG PO SCH (09:00)
[2021-10-07] MEDS ORDERED: MULTIVITAMINS, THERA 1 EACH TAB PO SCH (09:00)
[2021-10-07] MEDS ORDERED: LISINOPRIL-HCTZ 20-12.5 MG 1 EACH TAB PO SCH (09:00)
[2021-10-07 09:22] VITALS: RESP 18
[2021-10-07] MEDS: AZITHROMYCIN 500 MG in SODIUM CHLORIDE 0.9% 250 ML IVPB SCH (11:00)
--- NOTE | 2021-10-07 11:32 | ECHOF ---
Referral Reason:mackenzie MEASUREMENTS -------- HEIGHT: 165.1 cm WEIGHT: 83.9 kg BP: RVIDd: 3.2 cm (< 3.3) IVSd: 1.4 cm (0.6 - 1.1) LVIDd: 5.3 cm (3.9 - 5.3) LVPWd: 1.2 cm (0.6 - 1.1) IVSs: 1.5 cm LVIDs: 4.5 cm LVPWs: 1.4 cm LA Diam: 4.4 cm (2.7 - 3.8) LAESV Index (A-L): 33.51 ml/m Ao Diam: 3.0 cm (2.0 - 3.7) AV Cusp: 1.3 cm (1.5 - 2.6) LA Diam: 4.6 cm (2.7 - 3.8) MV EXCURSION: 17.701 mm (> 18.000) MV EF SLOPE: 60 mm/s (70 - 150) EPSS: 0.4 cm MV E Justin: 1.25 m/s MV DecT: 283 ms MV A Justin: 0.74 m/s MV E/A Ratio: 1.68 AV maxP.68 mmHg AV meanP.65 mmHg RAP: 5.00 mmHg RVSP: 28.89 mmHg FINDINGS -------- Sinus rhythm. This was a technically good study. The left ventricular size is normal. There is moderate concentric left ventricular hypertrophy. O verall left ventricular systolic function is normal with, an EF between 55 - 60 %. The right ventricle is normal in size. LA is midly dilated 29-33ml/m2. The right atrial size is normal. There is mild aortic stenosis present. Peak/mean gradient across the Aortic Valve is 17.68mmHg / 8. 65mmHg. Moderate mitral annular calcification present. Mild mitral regurgitation is present. The peak an d mean MV gradients are 8.91mmHg 2.25mmHg as measured by doppler. Mild tricuspid regurgitation present. Right ventricular systolic pressure is normal at < 35 mmHg. There is no pulmonic regurgitation present. Echo free space represents a pericardial fat pad. CONCLUSIONS -------- 1. The left ventricular size is normal. 2. There is moderate concentric left ventricular hypertrophy. 3. Overall left ventricular systolic function is normal with, an EF between 55 - 60 %. 4. The right ventricle is normal in size. 5. LA is midly dilated 29-33ml/m2. 6. The right atrial size is normal. 7. There is mild aortic stenosis present. 8. Peak/mean gradient across the Aortic Valve is 17.68mmHg / 8.65mmHg. 9. Moderate mitral annular calcification present. 10. Mild mitral regurgitation is present. 11. The peak and mean MV gradients are 8.91mmHg 2.25mmHg as measured by doppler. 12. Mild tricuspid regurgitation present. 13. There is no pulmonic regurgitation present. 14. Echo free space represents a pericardial fat pad. WIND TECHNICIAN: Kimberley Lugo RDCS
--- NOTE | 2021-10-07 13:17 | P.PN ---
Subjective Progress Note Date: 10/07/21 HISTORY OF PRESENT ILLNESS: Patient is a very pleasant 71-year-old female with a past medical history of hypertension, hyperlipidemia, and EtOH use/abuse drinking approximately 6 beers daily times many years. She presented to the emergency department with a chief complaint of shortness of breath, chest pressure and palpitations. In the emergency department patient underwent a full evaluation. Chest x-ray completed negative for acute cardiopulmonary process. CTA negative for pulmonary emboli. EKG revealing atrial fibrillation with RVR 114 bpm with T-wave inversion in inferior leads 2, 3, and aVF. Patient was admitted under internal medicine team and we have been consulted for management of A. fib RVR. Patient seen and fully evaluated at the bedside. She is currently on heparin infusion and Cardizem infusion at 5 mg per hour. Patient remains in atrial fibrillation with slightly tachycardic rate ranging from 90s to 110s. She currently reports palpitations, shortness of breath, and chest pressure have resolved. She denies having any other complaints including headache, lightheadedness, dizziness, nausea, vomiting, or experiencing any numbness/tingling/weakness in her extremities. 10/07/2021 Patient examined this morning at the bedside. She denies chest pain or pressure. Denies SOB. Telemetry reveals sinus mechanism. Vital signs stable. The patient is currently on IV Cardizem and IV heparin. Echo cardiac completed revealed ejection fraction 55-60%, mild aortic stenosis, mild mitral regurgitation, and mild tricuspid regurgitation. PHYSICAL EXAM: VITAL SIGNS: Reviewed. GENERAL: Well-developed in no acute distress. NECK: Supple. No JVD or thyromegaly LUNGS: Respirations even and unlabored. Lungs essentially clear to auscultation bilaterally. HEART: Regular rate and rhythm. S1 and S2 heard. Soft systolic murmur. EXTREMITIES: Normal range of motion. No clubbing or cyanosis. Peripheral pulses intact. No lower extremity edema ASSESSMENT: New onset paroxysmal atrial fibrillation with RVR Hypertension Hyperlipidemia Alcohol abuse PLAN: Discontinue IV heparin. Begin Eliquis 5 mg twice a day Discontinue aspirin Discontinue IV Cardizem Increase metoprolol to 50 mg daily Patient may be discharged home this afternoon from a cardiac standpoint Patient to follow up on an outpatient basis Nurse practitioner note has been reviewed by physician. Signing provider agrees with the documented findings, assessment, and plan of care. Objective - Vital Signs Vital signs: Vital Signs Temp 98.2 F 10/07/21 12:28 Pulse 62 10/07/21 12:28 Resp 18 10/07/21 12:28 BP 125/66 10/07/21 12:28 Pulse Ox 98 10/07/21 12:28 Intake & Output 10/06/21 10/07/21 10/07/21 18:59 06:59 18:59 Intake Total 1154.156 36.922 395.750 Output Total 0 Balance 1154.156 36.922 395.750 Intake: IV 50 Invasive Line 2 30 Invasive Line 3 20 Intake, IV Titration 264.156 36.922 275.750 Amount Diltiazem 125 mg In 102.833 88.833 Sodium Chloride 0.9% 100 ml @ 5 MG/HR 5 mls/hr IV .Q24H [facility] Rx#:[id number] Heparin Sod,Pork in 0.45% 161.323 36.922 186.917 NaCl 25,000 unit In 0.45 % NaCl 1 250ml.bag @ 12 UNITS/KG/HR 10.07 mls/hr IV .Q24H [facility] Rx#: [id number] Oral 840 120 Output: Urine 0 Stool 0 Urine/Stool Mix 0 Other: # Voids 4 0 # Bowel Movements 0 - Labs CBC & Chem 7: 10/07/21 07:40 10/07/21 07:40 Labs: Abnormal Lab Results - Last 24 Hours (Table) 10/06/21 10/07/21 10/07/21 Range/Units 09:38 07:40 07:40 Hct 47.0 H (34.0-46.0) % MCV 108.2 H (80.0-100.0) fL MCH 35.2 H (25.0-35.0) pg Sodium 135 L (137-145) mmol/L Glucose 140 H (74-99) mg/dL Procalcitonin 0.10 H (0.02-0.09) ng/mL
--- NOTE | 2021-10-07 14:26 | P.PN ---
Subjective Progress Note Date: 10/07/21 On today's evaluation of 10/07/2021, the patient is being seen for a follow-up. The patient is a 71-year-old female patient, presented to hospital because of increased shortness of breath. The patient had some chest discomfort without evidence of any acute coronary syndrome. There was evidence of some pericardial effusion the CAT scan of the chest that was done. Nevertheless, there was no evidence of pneumonia. No evidence of any pulmonary embolism. No evidence of any acute other abnormalities. The patient was in atrial fibrillation with RVR and she was treated with Cardizem drip and IV heparin and the patient is currently back to normal sinus rhythm. Echocardiogram was completed today. She has no other complaints otherwise. The pro calcitonin level is at 0.1. Electrodes are all within normal limits. Normal renal function. The white cell count is at 9.2 with a hemoglobin 15.3. The echo was completed and the patient was found to have moderate LVH, normal ejection fraction 55-60%, mild aortic stenosis, moderate mitral annular calcification, mild mitral regurgitation, no evidence of any pulmonary hypertension. There is no mentioning of any significant pericardial effusion. Objective - Vital Signs Vital signs: Vital Signs Temp 98.2 F 10/07/21 12:28 Pulse 62 10/07/21 12:28 Resp 18 10/07/21 12:28 BP 125/66 10/07/21 12:28 Pulse Ox 98 10/07/21 12:28 Intake & Output 10/06/21 10/07/21 10/07/21 18:59 06:59 18:59 Intake Total 1154.156 36.922 515.750 Output Total 0 Balance 1154.156 36.922 515.750 Intake: IV 50 Invasive Line 2 30 Invasive Line 3 20 Intake, IV Titration 264.156 36.922 275.750 Amount Diltiazem 125 mg In 102.833 88.833 Sodium Chloride 0.9% 100 ml @ 5 MG/HR 5 mls/hr IV .Q24H [facility] Rx#:[id number] Heparin Sod,Pork in 0.45% 161.323 36.922 186.917 NaCl 25,000 unit In 0.45 % NaCl 1 250ml.bag @ 12 UNITS/KG/HR 10.07 mls/hr IV .Q24H [facility] Rx#: [id number] Oral 840 240 Output: Urine 0 Stool 0 Urine/Stool Mix 0 Other: # Voids 4 0 # Bowel Movements 0 - Exam GENERAL EXAM: Alert, very pleasant 71-year-old female patient, on room air, comfortable in no apparent distress. HEAD: Normocephalic. EYES: Normal reaction of pupils, equal size. NOSE: Clear with pink turbinates. THROAT: No erythema or exudates. NECK: No masses, no JVD. CHEST: No chest wall deformity. LUNGS: Equal air entry with no crackles, wheeze, rhonchi or dullness. CVS: S1 and S2 normal with no audible murmur, irregular rhythm. ABDOMEN: No hepatosplenomegaly, normal bowel sounds, no guarding or rigidity. SPINE: No scoliosis or deformity SKIN: No rashes CENTRAL NERVOUS SYSTEM: No focal deficits, tone is normal in all 4 extremities. EXTREMITIES: There is no peripheral edema. No clubbing, no cyanosis. Peripheral pulses are intact. - Labs CBC & Chem 7: 10/07/21 07:40 10/07/21 07:40 Labs: Abnormal Lab Results - Last 24 Hours (Table) 10/06/21 10/07/21 10/07/21 Range/Units 09:38 07:40 07:40 Hct 47.0 H (34.0-46.0) % MCV 108.2 H (80.0-100.0) fL MCH 35.2 H (25.0-35.0) pg Sodium 135 L (137-145) mmol/L Glucose 140 H (74-99) mg/dL Procalcitonin 0.10 H (0.02-0.09) ng/mL Assessment and Plan Plan: 1 Chest discomfort without evidence of acute coronary syndrome, could be related to atrial fibrillation with rapid ventricular response at a time of admission, and the patient is under much better control for now, back and she is back to rhythm and the patient is currently on a combination of metoprolol and Eliquis. Cardizem drip has been discontinued. 2 Atrial fibrillation with a rapid ventricular response, recovered. Echocardiac Hi from hypertensive heart disease with concentric LVH. No valvular abnormalities. 3 Dyspnea on exertion secondary to above, no evidence of pneumonia 4 History of chronic tobacco dependence 5 History of hypertension 6 History of gout 7 Daily alcohol use of 6 beers a day Plan: Continue metoprolol 50 mg by mouth daily Cardizem drip has been discontinued Initiate long-term and coagulation with Eliquis 5 mg by mouth twice a day Pro-calcitonin level is low Antibiotics can be discontinued Echocardiogram was noted Discharged from medicine Pulse ox is up to 98% on room air oxygen =
[2021-10-07 15:31] VITALS: BP 124/64; PULSE 61; TEMP 98.1
--- NOTE | 2021-10-07 17:51 | P.DS ---
Providers Date of admission: 10/07/21 07:40 Expected date of discharge: 10/07/21 Attending physician: Poonam Somers Consults: 10/05/21 20:09 Consult Physician Routine Consulting Provider: Teddy Quigley Consult Reason/Comments: a-fib with RVR Do you want consulting provider notified?: Yes 10/06/21 10:11 Consult Physician Routine Consulting Provider: Jw Mistry Consult Reason/Comments: [place] Do you want consulting provider notified?: Yes Primary care physician: Tatyana Garcia Hospital Course: Diagnosis on discharge: 1. Dyspnea secondary to pneumonia and new onset atrial fibrillation with RVR 2. Atrial fibrillation with rapid ventricular response. Patient started on Cardizem and heparin drips. Cardiology services consulted 2-D echo ordered, she was evaluated by cardiology and was started on Toprol-XL and Eliquis, and was cleared for discharge 3. Basilar infiltrates on computed tomography scan suggestive of pneumonia. Patient started on azithromycin and Rocephin. Pulmonary service is consulted, patient was evaluated by pulmonary antibiotic discontinued. No evidence of pneumonia for pulmonary 4. EtOH. Alcohol withdrawal protocol initiated patient reports she drinks approximately 6 beers a day 5. Essential hypertension Hospital course: This is a 71-year-old female patient of Dr. Garcia who presented with concerns of shortness breath and rapid heartbeat. Patient states that initial episode happened 2 days ago where she felt that her heart was racing and she had trouble breathing. Patient denies any symptoms. Patient reports that the symptoms re- presented yesterday which prompted her to come to ER. Patient does have a past medical history of essential hypertension and EtOH. Patient reports she drinks 6 beers a day. Chest x-ray was completed showing no active cardiopulmonary disease. Chest CTA was completed showing no evidence of pulmonary embolism. Pericardial effusion. Interstitial lower lobe multiple pulmonary infiltrates. Patient also presented with an elevated white count of 15.5. EKG completed showing atrial fibrillation with rapid ventricular response. Patient denies history of atrial fibrillation. Troponins negative 3. Patient was started on Cardizem drip and heparin drip. Patient also started on IV antibiotics. At this time cardiology and pulmonary services have been consulted. COVID-19 negative. 2-D echo has been ordered. Alcohol withdrawal protocol initiated. Repeat labs ordered. This time patient is resting comfortably in bed. Patient denies chest pain or shortness breath. Patient denies nausea vomiting or diarrhea. Patient denies any urinary burning or frequency On 10/07/2021 patient was seen and examined on the medical floor she is alert and oriented in no apparent distress there is no fever or chills no headache or dizziness no chest pain no shortness of breath no cough no nausea or vomiting no abdominal pain no diarrhea and no urinary symptoms. Patient was cleared for discharge by cardiology and pulmonary She was given a prescription for Toprol-XL and Eliquis. She will follow-up was Dr. Garcia in the next 2-3 days Patient Condition at Discharge: Stable Plan - Discharge Summary Discharge Rx Participant: No New Discharge Prescriptions: New Metoprolol Succinate (ER) [Toprol XL] 50 mg PO DAILY Apixaban [Eliquis] 5 mg PO BID #60 tab Acetaminophen Tab [Tylenol] 650 mg PO Q6HR PRN tab PRN Reason: Mild Pain Or Fever > 100.5 Continue Multivitamins, Thera [Multivitamin (formulary)] 1 tab PO DAILY amLODIPine [Norvasc] 10 mg PO DAILY Lisinopril-Hctz 20-12.5 mg [Zestoretic 20-12.5] 1 tab PO DAILY Allopurinol [Zyloprim] 100 mg PO DAILY Discontinued Aspirin EC [Ecotrin Low Dose] 81 mg PO DAILY Discharge Medication List Allopurinol [Zyloprim] 100 mg PO DAILY 10/05/21 [History] Lisinopril-Hctz 20-12.5 mg [Zestoretic 20-12.5] 1 tab PO DAILY 10/05/21 [History] Multivitamins, Thera [Multivitamin (formulary)] 1 tab PO DAILY 10/05/21 [History] amLODIPine [Norvasc] 10 mg PO DAILY 10/05/21 [History] Acetaminophen Tab [Tylenol] 650 mg PO Q6HR PRN tab 10/07/21 [Rx] Apixaban [Eliquis] 5 mg PO BID #60 tab 10/07/21 [Rx] Metoprolol Succinate (ER) [Toprol XL] 50 mg PO DAILY 10/07/21 [Rx] Follow up Appointment(s)/Referral(s): Tatyana Garcia MD [Primary Care Provider] - 1-2 days Teddy Quigley MD [STAFF PHYSICIAN] - 1 Week
== END 2021-10-07 18:55 | disposition home or self-care (01) | DRG 309 ==
LOC: EC 17:48 → 3SCARD 20:09 → OBSVTOIN 10-07 07:40
PROVIDERS: ADMIT Internal Medicine; ATTEND Internal Medicine
DX: I48.0 Paroxysmal atrial fibrillation (principal); J98.11 Atelectasis; I11.9 Hypertensive heart disease without heart failure; E78.5 Hyperlipidemia, unspecified; Z20.822 Contact with and (suspected) exposure to COVID-19; I08.3 Combined rheumatic disorders of mitral, aortic and tricuspid valves; I45.10 Unspecified right bundle-branch block; F10.10 Alcohol abuse, uncomplicated; M10.9 Gout, unspecified; Z79.82 Long term (current) use of aspirin; Z79.899 Other long term (current) drug therapy; Z86.16 Personal history of COVID-19; Z90.49 Acquired absence of other specified parts of digestive tract; Z87.19 Personal history of other diseases of the digestive system; Z87.39 Personal history of other diseases of the musculoskeletal system and connective tissue; Z87.2 Personal history of diseases of the skin and subcutaneous tissue; Z87.891 Personal history of nicotine dependence; Z71.6 Tobacco abuse counseling; Z98.890 Other specified postprocedural states; Z88.5 Allergy status to narcotic agent; Z82.49 Family history of ischemic heart disease and other diseases of the circulatory system
CPT/HCPCS: 36415; 71045; 71275; 80053; 83735; 83880; 84145; 84484; 85025; 85610; 85730; 87635; 93005; 93306; 99291